=== PATIENT | male | born 1960 | race Caucasian/White ===

== ENCOUNTER → 2016-06-25 | Outpatient (CLI) | payer OTHER ==
--- NOTE | 2016-06-27 16:13 | HM ---
Date Performed: 06/25/2016 Time Performed: 08:57:00 HOOKUP DATE: 06/25/16 08:57:00 AM Renae ANALYSIS START TIME: 06/25/2016 9:02:00 AM ANALYSIS END TIME: 06/26/2016 9:06:00 AM PATIENT AGE: 56 PATIENT HEIGHT PATIENT WEIGHT DRUG LIST PATIENT DIAGNOSIS: TACHYCARDIA ESSENTIAL HYPERTENSION TEST NARRATIVE: The patient's average heart rate was 92 BPM. Heart rates greater than 120 B PM were noted < 1% of the time. No episodes of bradycardia were noted. No pauses exceeding 2.0 s econds were noted. 3 ventricular ectopics, which represented < 1% of the total beat count, were n oted. The highest ventricular ectopic frequency occurred from 09:00 PM to 10:00 PM Renae. During this time 2 VE(s) occurred. Ventricular ectopics were observed as 3 isolated beat(s) only. No couplets or runs were noted. No supraventricular ectopics were noted. No episodes of ST depression (de fined as -1.0 mm or more) were noted in channel 1. No episodes of ST depression (defined as -1.0 mm or more) were noted in channel 2. No episodes of ST depression (defined as -1.0 mm or more) were not ed in channel 3. No diary events reported by the patient. TEST INTERPRETATION: Agree with the interpretation as is. Dr. Abrams Signed by : Aldair Abrams
== END ==
LOC: HCAV 08:35
DX: R00.0 Tachycardia, unspecified (principal); I10 Essential (primary) hypertension
CPT/HCPCS: 93225; 93226